=== PATIENT | male | born 1960 | race Caucasian/White ===

== ENCOUNTER 2018-11-16 00:53 | Emergency (ER) | payer OTHER ==
[2018-11-16] MEDS: DEXTROSE 5%-0.45% NACL 500 ML BAG IV (01:41)
[2018-11-16] MEDS: FOLIC ACID 1 MG TAB PO (01:42)
[2018-11-16] MEDS: DIAZEPAM 5 MG/ML SYG IV (01:42)
[2018-11-16] MEDS: THIAMINE 100 MG TAB PO (01:42)
[2018-11-16 01:43] LABS: ADD MAN DIFF? NO
[2018-11-16] MEDS: SOD CHLORIDE 0.9% 1,000 ML IV (01:43)
[2018-11-16 01:47] LABS: BASOPHILS % 0.4 % (0.0-2.0); EOSINOPHILS # 0.1 10^3/ul (0.0-0.5); EOSINOPHILS % 1.6 % (0.0-7.0); HEMATOCRIT 28.6 % (42.0-52.0); HEMOGLOBIN 9.7 g/dl (14.0-18.0); LYMPHOCYTES # 1.6 10^3/ul (0.8-2.9); LYMPHOCYTES % 22.8 % (15.0-51.0); MEAN CORPUSCULAR HEMOGLOBIN 32.7 pg (29.0-33.0); MEAN CORPUSCULAR HGB CONC 33.9 g/dl (32.0-37.0); MEAN CORPUSCULAR VOLUME 96.3 fl (82.0-101.0); MEAN PLATELET VOLUME 8.7 fl (7.4-10.4); MONOCYTE # 0.7 10^3/ul (0.3-0.9); MONOCYTES % 9.7 % (0.0-11.0); NEUTROPHIL # 4.5 10^3/ul (1.6-7.5); NEUTROPHILS % 65.2 % (39.0-77.0); PLATELET COUNT 146 10^3/UL (140-415); RED BLOOD COUNT 2.97 10^6/ul (4.70-6.10)
[2018-11-16 01:47] LABS: WHITE BLOOD COUNT 6.9 10^3/ul (4.8-10.8)
[2018-11-16 02:03] LABS: ANION GAP 11 (5-13); BLOOD UREA NITROGEN 5 mg/dl (7-20); CALCIUM 8.7 mg/dl (8.4-10.2); CARBON DIOXIDE 26 mmol/L (21-31); CHLORIDE 102 mmol/L (97-110); CREATININE 0.75 mg/dl (0.61-1.24); Estimated GFR > 60 mL/min (>60); GLUCOSE 91 mg/dl (70-220); POTASSIUM 3.6 mmol/L (3.5-5.1); SODIUM 139 mmol/L (135-144)
[2018-11-16 02:08] LABS: INR 0.98; PROTIME 13.1 Sec (11.9-14.9)
[2018-11-16 02:09] LABS: PARTIAL THROMBOPLASTIN TIME 26.3 Sec (23.0-35.0)
[2018-11-16] MEDS: LORAZEPAM 1 MG TAB PO (10:04)
== END 2018-11-16 11:16 | disposition home or self-care (01) ==
LOC: E/R 11:16
DX: F10.230 Alcohol dependence with withdrawal, uncomplicated (principal); E86.0 Dehydration; S09.90XA Unspecified injury of head, initial encounter; R51 Headache; R07.9 Chest pain, unspecified; Y08.89XA Assault by other specified means, initial encounter
CPT/HCPCS: 36415; 70450; 70486; 71045; 80048; 85025; 85610; 85730; 96361; 96374; 96375; 99285-25

== ENCOUNTER 2018-11-17 11:43 | Inpatient (IN) | payer OTHER ==
[2018-11-17] MEDS: SOD CHLORIDE 0.9% 1,000 ML IV (12:53)
[2018-11-17 13:04] LABS: ADD MAN DIFF? NO
[2018-11-17 13:28] LABS: ANION GAP 11 (5-13); BLOOD UREA NITROGEN 4 mg/dl (7-20); CALCIUM 8.1 mg/dl (8.4-10.2); CARBON DIOXIDE 21 mmol/L (21-31); CHLORIDE 98 mmol/L (97-110); CREATININE 0.69 mg/dl (0.61-1.24); Estimated GFR > 60 mL/min (>60); GLUCOSE 85 mg/dl (70-220); POTASSIUM 3.9 mmol/L (3.5-5.1); SODIUM 130 mmol/L (135-144)
[2018-11-17 13:33] LABS: INR 1.06; PROTIME 13.9 Sec (11.9-14.9); PT RATIO 1.1
[2018-11-17 13:34] LABS: PARTIAL THROMBOPLASTIN TIME 21.7 Sec (23.0-35.0)
[2018-11-17 13:41] LABS: TROPONIN-I < 0.012 ng/ml (0.000-0.120)
[2018-11-17] MEDS: DIAZEPAM 5 MG/ML SYG IV (13:43)
[2018-11-17 14:31] LABS: WHITE BLOOD COUNT 8.4 10^3/ul (4.8-10.8)
[2018-11-17 14:31] LABS: ABNORMAL IP MESSAGE 1; BASOPHILS % 0.2 % (0.0-2.0); EOSINOPHILS % 0.4 % (0.0-7.0); HEMATOCRIT 26.6 % (42.0-52.0); HEMOGLOBIN 9.2 g/dl (14.0-18.0); LYMPHOCYTES # 0.5 10^3/ul (0.8-2.9); LYMPHOCYTES % 5.9 % (15.0-51.0); MEAN CORPUSCULAR HEMOGLOBIN 33.3 pg (29.0-33.0); MEAN CORPUSCULAR HGB CONC 34.6 g/dl (32.0-37.0); MEAN CORPUSCULAR VOLUME 96.4 fl (82.0-101.0); MEAN PLATELET VOLUME 9.2 fl (7.4-10.4); MONOCYTE # 0.7 10^3/ul (0.3-0.9); MONOCYTES % 8.9 % (0.0-11.0); PLATELET COUNT 112 10^3/UL (140-415); POSITIVE DIFF @See below; RED BLOOD COUNT 2.76 10^6/ul (4.70-6.10); RED CELL DISTRIBUTION WIDTH 13.7 % (11.5-14.5)
[2018-11-18] MEDS ORDERED: ONDANSETRON 4 MG INJ IV ×2 (07:00→12:30)
[2018-11-18] MEDS ORDERED: ACETAMINOPHEN 325 MG TAB PO (07:00)
[2018-11-18] MEDS ORDERED: NACL 0.9% 3 ML SYG IV (12:30)
[2018-11-18] MEDS: SOD CHLORIDE 0.9% 1,000 ML IV ×2 (14:09→20:25)
[2018-11-18] MEDS: CHLORDIAZEPOXIDE 25 MG CAP PO ×2 (14:10→20:14)
[2018-11-18] MEDS: MULTIVITAMINS 10 ML, THIAMINE 100 MG, FOLIC ACID 1 MG in SOD CHLORIDE 0.9% 1,000 ML IVPB (14:10)
[2018-11-18] MEDS: LORAZEPAM 2 MG INJ IV ×2 (14:10→23:45)
[2018-11-18] MEDS: ACETAMINOPHEN 325 MG TAB PO (20:14)
[2018-11-19] MEDS ORDERED: traMADol-APAP 37.5-325 1 TAB PO
[2018-11-19] MEDS: traMADol 50 MG TAB PO ×3 (00:30→21:17)
[2018-11-19] MEDS: SOD CHLORIDE 0.9% 1,000 ML IV ×3 (04:25→20:25)
[2018-11-19 05:40] LABS: ADD MAN DIFF? NO
[2018-11-19 05:46] LABS: WHITE BLOOD COUNT 11.2 10^3/ul (4.8-10.8)
[2018-11-19 05:46] LABS: ABNORMAL IP MESSAGE 1; BASOPHILS % 0.2 % (0.0-2.0); EOSINOPHILS # 0.2 10^3/ul (0.0-0.5); EOSINOPHILS % 1.5 % (0.0-7.0); HEMATOCRIT 30.2 % (42.0-52.0); HEMOGLOBIN 10.1 g/dl (14.0-18.0); LYMPHOCYTES # 1.2 10^3/ul (0.8-2.9); LYMPHOCYTES % 10.5 % (15.0-51.0); MEAN CORPUSCULAR HEMOGLOBIN 32.9 pg (29.0-33.0); MEAN CORPUSCULAR HGB CONC 33.4 g/dl (32.0-37.0); MEAN CORPUSCULAR VOLUME 98.4 fl (82.0-101.0); MEAN PLATELET VOLUME 9.6 fl (7.4-10.4); MONOCYTE # 1.7 10^3/ul (0.3-0.9); MONOCYTES % 14.8 % (0.0-11.0); NEUTROPHIL # 8.1 10^3/ul (1.6-7.5); NEUTROPHILS % 72.2 % (39.0-77.0); PLATELET COUNT 105 10^3/UL (140-415); POSITIVE DIFF @See below; RED BLOOD COUNT 3.07 10^6/ul (4.70-6.10); RED CELL DISTRIBUTION WIDTH 13.7 % (11.5-14.5)
[2018-11-19 06:10] LABS: ALANINE AMINOTRANSFERASE 45 IU/L (13-69); ALBUMIN 3.3 g/dl (3.3-4.9); ALBUMIN/GLOBULIN RATIO 1.26; ALKALINE PHOSPHATASE 62 IU/L (42-121); ANION GAP 8 (5-13); ASPARTATE AMINO TRANSFERASE 42 IU/L (15-46); BILIRUBIN,INDIRECT 0.9 mg/dl (0-1.1); BILIRUBIN,TOTAL 0.9 mg/dl (0.2-1.3); BLOOD UREA NITROGEN 15 mg/dl (7-20); CALCIUM 8.2 mg/dl (8.4-10.2); CARBON DIOXIDE 25 mmol/L (21-31); CHLORIDE 102 mmol/L (97-110); CHOLESTEROL 95 mg/dl (100-200); CREATININE 0.66 mg/dl (0.61-1.24); Estimated GFR > 60 mL/min (>60); GLUCOSE 100 mg/dl (70-220); HDL CHOLESTEROL 46 mg/dl (28-71); LDL CHOLESTEROL,CALCULATED 40 mg/dl; MAGNESIUM 1.8 mg/dl (1.7-2.5); PHOSPHORUS 3.2 mg/dl (2.5-4.9); POTASSIUM 3.8 mmol/L (3.5-5.1); SODIUM 135 mmol/L (135-144); TOTAL PROTEIN 5.9 g/dl (6.1-8.1); TRIGLYCERIDES 47 mg/dl (0-149)
[2018-11-19 06:43] LABS: AMPHETAMINE/METHAMPHETAMINE Negative (NEGATIVE); BARBITURATES Negative (NEGATIVE); CANNABINOIDS Negative (NEGATIVE); COCAINE Negative (NEGATIVE); OPIATES Negative (NEGATIVE)
[2018-11-19 06:45] LABS: BENZODIAZEPINES Positive (NEGATIVE)
[2018-11-19 07:04] LABS: HEMOGLOBIN A1C 4.9 % (0-5.9)
[2018-11-19] MEDS: MULTIVITAMINS 10 ML, THIAMINE 100 MG, FOLIC ACID 1 MG in SOD CHLORIDE 0.9% 1,000 ML IVPB (09:12)
[2018-11-19] MEDS: CHLORDIAZEPOXIDE 25 MG CAP PO ×3 (09:12→20:27)
[2018-11-19] MEDS: LORAZEPAM 2 MG INJ IV ×2 (15:20→20:27)
[2018-11-20] MEDS: LORAZEPAM 2 MG INJ IV ×3 (00:31→21:31)
[2018-11-20] MEDS: ACETAMINOPHEN 325 MG TAB PO ×2 (00:36→21:26)
[2018-11-20] MEDS: CHLORDIAZEPOXIDE 25 MG CAP PO ×4 (01:38→21:26)
[2018-11-20] MEDS: DIPHENHYDRAMINE 50 MG INJ IV (02:30)
[2018-11-20] MEDS: HALOPERIDOL 5 MG INJ IM (02:32)
[2018-11-20] MEDS: SOD CHLORIDE 0.9% 1,000 ML IV ×3 (03:30→21:32)
[2018-11-20] MEDS: MULTIVITAMINS 10 ML, THIAMINE 100 MG, FOLIC ACID 1 MG in SOD CHLORIDE 0.9% 1,000 ML IVPB (09:52)
[2018-11-20] MEDS ORDERED: CHLORDIAZEPOXIDE 25 MG CAP PO (13:00)
[2018-11-20] MEDS: traMADol 50 MG TAB PO (17:16)
== END 2018-11-20 23:10 | disposition left against medical advice (07) | DRG 894 ==
LOC: 6WM 11-18 10:04 → E/R 11:43 → 6WM 11-18 06:37
DX: F10.121 Alcohol abuse with intoxication delirium (principal); E87.1 Hypo-osmolality and hyponatremia; G31.2 Degeneration of nervous system due to alcohol; Y90.7 Blood alcohol level of 200-239 mg/100 ml; D64.9 Anemia, unspecified; F32.9 Major depressive disorder, single episode, unspecified; M54.9 Dorsalgia, unspecified; M47.819 Spondylosis without myelopathy or radiculopathy, site unspecified; Z59.0 Homelessness; Z53.21 Procedure and treatment not carried out due to patient leaving prior to being seen by health care provider
CPT/HCPCS: 36415; 70450; 72125; 80048; 80053; 80061; 80307; 82962; 83036; 83735; 84100; 84484; 85025; 85610; 85730; 92610; 93005; 96374; 97162; 99285-25

== ENCOUNTER 2018-11-21 02:37 | Emergency (ER) | payer OTHER ==
[2018-11-21] MEDS: SOD CHLORIDE 0.9% 1,000 ML IV (03:26)
[2018-11-21] MEDS: ONDANSETRON 4 MG INJ IV (03:26)
[2018-11-21] MEDS: LORAZEPAM 2 MG INJ IM (03:26)
[2018-11-21 03:33] LABS: ADD MAN DIFF? NO
[2018-11-21 04:06] LABS: WHITE BLOOD COUNT 9.9 10^3/ul (4.8-10.8)
[2018-11-21 04:06] LABS: ABNORMAL IP MESSAGE 1; BASOPHILS % 0.3 % (0.0-2.0); EOSINOPHILS # 0.1 10^3/ul (0.0-0.5); EOSINOPHILS % 0.8 % (0.0-7.0); HEMATOCRIT 27.9 % (42.0-52.0); HEMOGLOBIN 9.4 g/dl (14.0-18.0); LYMPHOCYTES # 1.1 10^3/ul (0.8-2.9); LYMPHOCYTES % 10.6 % (15.0-51.0); MEAN CORPUSCULAR HEMOGLOBIN 33.1 pg (29.0-33.0); MEAN CORPUSCULAR HGB CONC 33.7 g/dl (32.0-37.0); MEAN CORPUSCULAR VOLUME 98.2 fl (82.0-101.0); MEAN PLATELET VOLUME 9.4 fl (7.4-10.4); MONOCYTE # 1.6 10^3/ul (0.3-0.9); MONOCYTES % 16.5 % (0.0-11.0); NEUTROPHIL # 7.1 10^3/ul (1.6-7.5); NEUTROPHILS % 71.1 % (39.0-77.0); PLATELET COUNT 197 10^3/UL (140-415); POSITIVE DIFF @See below; RED BLOOD COUNT 2.84 10^6/ul (4.70-6.10); RED CELL DISTRIBUTION WIDTH 13.5 % (11.5-14.5)
[2018-11-21 04:32] LABS: ALANINE AMINOTRANSFERASE 48 IU/L (13-69); ALBUMIN 3.6 g/dl (3.3-4.9); ALBUMIN/GLOBULIN RATIO 1.16; ALKALINE PHOSPHATASE 71 IU/L (42-121); ANION GAP 10 (5-13); ASPARTATE AMINO TRANSFERASE 69 IU/L (15-46); BILIRUBIN,INDIRECT 0.4 mg/dl (0-1.1); BILIRUBIN,TOTAL 0.4 mg/dl (0.2-1.3); BLOOD UREA NITROGEN 13 mg/dl (7-20); CALCIUM 9.3 mg/dl (8.4-10.2); CARBON DIOXIDE 24 mmol/L (21-31); CHLORIDE 101 mmol/L (97-110); CREATININE 0.77 mg/dl (0.61-1.24); Estimated GFR > 60 mL/min (>60); GLUCOSE 81 mg/dl (70-220); LIPASE 138 U/L (23-300); POTASSIUM 3.8 mmol/L (3.5-5.1); SODIUM 135 mmol/L (135-144); TOTAL PROTEIN 6.7 g/dl (6.1-8.1)
[2018-11-21 04:42] LABS: TROPONIN-I < 0.012 ng/ml (0.000-0.120)
[2018-11-21] MEDS: HALOPERIDOL 5 MG INJ IM (04:47)
== END 2018-11-21 07:25 | disposition home or self-care (01) ==
LOC: E/R 02:37
DX: F10.230 Alcohol dependence with withdrawal, uncomplicated (principal); R40.2142 Coma scale, eyes open, spontaneous, at arrival to emergency department; R40.2362 Coma scale, best motor response, obeys commands, at arrival to emergency department; R40.2252 Coma scale, best verbal response, oriented, at arrival to emergency department; R07.9 Chest pain, unspecified; Z87.891 Personal history of nicotine dependence
CPT/HCPCS: 36415; 71045; 72170; 80053; 80307; 83690; 84484; 85025; 96372; 96374; 99284-25

== ENCOUNTER 2018-11-21 10:10 | Emergency (ER) | payer OTHER ==
[2018-11-21 10:43] LABS: ADD MAN DIFF? NO
[2018-11-21 10:44] LABS: ABNORMAL IP MESSAGE 1; BASOPHILS % 0.5 % (0.0-2.0); EOSINOPHILS # 0.1 10^3/ul (0.0-0.5); HEMATOCRIT 27.6 % (42.0-52.0); HEMOGLOBIN 9.4 g/dl (14.0-18.0); LYMPHOCYTES # 0.6 10^3/ul (0.8-2.9); LYMPHOCYTES % 7.1 % (15.0-51.0); MEAN CORPUSCULAR HEMOGLOBIN 33.3 pg (29.0-33.0); MEAN CORPUSCULAR HGB CONC 34.1 g/dl (32.0-37.0); MEAN CORPUSCULAR VOLUME 97.9 fl (82.0-101.0); MEAN PLATELET VOLUME 8.8 fl (7.4-10.4); MONOCYTE # 1.3 10^3/ul (0.3-0.9); MONOCYTES % 15.5 % (0.0-11.0); NEUTROPHIL # 6.2 10^3/ul (1.6-7.5); NEUTROPHILS % 75.4 % (39.0-77.0); PLATELET COUNT 211 10^3/UL (140-415); POSITIVE DIFF @See below; RED BLOOD COUNT 2.82 10^6/ul (4.70-6.10); RED CELL DISTRIBUTION WIDTH 13.6 % (11.5-14.5)
[2018-11-21 10:44] LABS: WHITE BLOOD COUNT 8.3 10^3/ul (4.8-10.8)
[2018-11-21 11:04] LABS: INR 0.93; PROTIME 12.6 Sec (11.9-14.9)
[2018-11-21 11:05] LABS: PARTIAL THROMBOPLASTIN TIME 25.8 Sec (23.0-35.0)
[2018-11-21] MEDS: MAGNESIUM SULFATE 2 GM, MULTIVITAMINS 10 ML, THIAMINE 100 MG, FOLIC ACID 1 MG in SOD CH... IV (11:09)
[2018-11-21 11:11] LABS: ANION GAP 12 (5-13); Estimated GFR > 60 mL/min (>60)
[2018-11-21 11:21] LABS: ALANINE AMINOTRANSFERASE 54 IU/L (13-69); ALBUMIN 3.6 g/dl (3.3-4.9); ALBUMIN/GLOBULIN RATIO 1.28; ALKALINE PHOSPHATASE 67 IU/L (42-121); ASPARTATE AMINO TRANSFERASE 84 IU/L (15-46); BILIRUBIN,INDIRECT 0.6 mg/dl (0-1.1); BILIRUBIN,TOTAL 0.6 mg/dl (0.2-1.3); BLOOD UREA NITROGEN 10 mg/dl (7-20); CARBON DIOXIDE 24 mmol/L (21-31); CHLORIDE 102 mmol/L (97-110); GLUCOSE 82 mg/dl (70-220); POTASSIUM 3.8 mmol/L (3.5-5.1); SODIUM 138 mmol/L (135-144); TOTAL PROTEIN 6.4 g/dl (6.1-8.1)
[2018-11-21 11:26] LABS: ACETAMINOPHEN < 10.0 ug/ml (10.0-30.0); SALICYLATE < 1.0 mg/dl (5.0-30.0)
[2018-11-21] MEDS ORDERED: CHLORDIAZEPOXIDE 25 MG CAP PO (13:30)
== END 2018-11-21 14:19 | disposition home or self-care (01) ==
LOC: E/R 10:10
DX: F10.920 Alcohol use, unspecified with intoxication, uncomplicated (principal)
CPT/HCPCS: 36415; 80053; 80307; 85025; 85610; 85730; 96374; 99284-25

== ENCOUNTER 2018-11-21 20:36 | Emergency (ER) | payer OTHER | END 2018-11-22 05:30 | disposition home or self-care (01) | LOC: E/R 11-22 05:30 | DX: F10.10 Alcohol abuse, uncomplicated (principal); M25.551 Pain in right hip; M25.552 Pain in left hip; G89.29 Other chronic pain; F17.210 Nicotine dependence, cigarettes, uncomplicated | CPT/HCPCS: 72170; 99283-25 ==

== ENCOUNTER 2018-11-24 00:56 | Inpatient (IN) | payer OTHER ==
[2018-11-24] MEDS: SOD CHLORIDE 0.9% 1,000 ML IV ×6 (02:30→22:30)
[2018-11-24] MEDS ORDERED: NACL 0.9% 3 ML SYG IV (02:30)
[2018-11-24] MEDS ORDERED: ALBUTEROL/IPRATROPIUM (NEB) 3 ML AMP HHN (02:30)
[2018-11-24] MEDS ORDERED: ONDANSETRON 4 MG INJ IV (02:30)
[2018-11-24] MEDS: PANTOPRAZOLE 40 MG INJ IV (05:34)
[2018-11-24 06:04] LABS: ADD MAN DIFF? NO
[2018-11-24 06:14] LABS: WHITE BLOOD COUNT 8.2 10^3/ul (4.8-10.8)
[2018-11-24 06:14] LABS: ABNORMAL IP MESSAGE 1; BASOPHILS % 0.5 % (0.0-2.0); EOSINOPHILS # 0.1 10^3/ul (0.0-0.5); EOSINOPHILS % 1.3 % (0.0-7.0); HEMATOCRIT 26.5 % (42.0-52.0); HEMOGLOBIN 8.6 g/dl (14.0-18.0); LYMPHOCYTES # 1.2 10^3/ul (0.8-2.9); LYMPHOCYTES % 14.5 % (15.0-51.0); MEAN CORPUSCULAR HEMOGLOBIN 32.7 pg (29.0-33.0); MEAN CORPUSCULAR HGB CONC 32.5 g/dl (32.0-37.0); MEAN CORPUSCULAR VOLUME 100.8 fl (82.0-101.0); MEAN PLATELET VOLUME 8.8 fl (7.4-10.4); MONOCYTE # 1.6 10^3/ul (0.3-0.9); MONOCYTES % 19.6 % (0.0-11.0); NEUTROPHIL # 5.2 10^3/ul (1.6-7.5); NEUTROPHILS % 63.2 % (39.0-77.0); PLATELET COUNT 343 10^3/UL (140-415); POSITIVE DIFF @See below; RED BLOOD COUNT 2.63 10^6/ul (4.70-6.10); RED CELL DISTRIBUTION WIDTH 14.3 % (11.5-14.5)
[2018-11-24 06:44] LABS: ALANINE AMINOTRANSFERASE 67 IU/L (13-69); ALBUMIN 2.6 g/dl (3.3-4.9); ALBUMIN/GLOBULIN RATIO 0.96; ALKALINE PHOSPHATASE 49 IU/L (42-121); ANION GAP 5 (5-13); ASPARTATE AMINO TRANSFERASE 92 IU/L (15-46); BILIRUBIN,INDIRECT 0.5 mg/dl (0-1.1); BILIRUBIN,TOTAL 0.5 mg/dl (0.2-1.3); BLOOD UREA NITROGEN 9 mg/dl (7-20); CALCIUM 7.3 mg/dl (8.4-10.2); CARBON DIOXIDE 23 mmol/L (21-31); CHLORIDE 114 mmol/L (97-110); CREATININE 0.72 mg/dl (0.61-1.24); Estimated GFR > 60 mL/min (>60); GLUCOSE 107 mg/dl (70-220); MAGNESIUM 2.3 mg/dl (1.7-2.5); POTASSIUM 3.7 mmol/L (3.5-5.1); SODIUM 142 mmol/L (135-144); TOTAL PROTEIN 5.3 g/dl (6.1-8.1)
[2018-11-24] MEDS: CHLORDIAZEPOXIDE 25 MG CAP PO ×2 (09:20→16:49)
[2018-11-24] MEDS: MULTIVITAMINS 10 ML, THIAMINE 100 MG, FOLIC ACID 1 MG in SOD CHLORIDE 0.9% 1,000 ML IVPB (09:20)
[2018-11-24] MEDS: ACETAMINOPHEN 325 MG TAB PO ×2 (14:04→21:41)
[2018-11-24] MEDS: LORAZEPAM 2 MG INJ IV (23:35)
[2018-11-25] MEDS: CHLORDIAZEPOXIDE 25 MG CAP PO ×3 (01:03→16:56)
[2018-11-25 05:39] LABS: ADD MAN DIFF? NO
[2018-11-25 05:44] LABS: BASOPHILS % 0.6 % (0.0-2.0); EOSINOPHILS # 0.3 10^3/ul (0.0-0.5); EOSINOPHILS % 3.7 % (0.0-7.0); HEMATOCRIT 26.9 % (42.0-52.0); HEMOGLOBIN 8.6 g/dl (14.0-18.0); LYMPHOCYTES # 1.4 10^3/ul (0.8-2.9); LYMPHOCYTES % 19.9 % (15.0-51.0); MEAN CORPUSCULAR HEMOGLOBIN 32.5 pg (29.0-33.0); MEAN CORPUSCULAR VOLUME 101.5 fl (82.0-101.0); MONOCYTE # 1.1 10^3/ul (0.3-0.9); NEUTROPHIL # 4.3 10^3/ul (1.6-7.5); PLATELET COUNT 325 10^3/UL (140-415); RED BLOOD COUNT 2.65 10^6/ul (4.70-6.10); RED CELL DISTRIBUTION WIDTH 13.8 % (11.5-14.5)
[2018-11-25 05:44] LABS: WHITE BLOOD COUNT 7.1 10^3/ul (4.8-10.8)
[2018-11-25] MEDS: SOD CHLORIDE 0.9% 1,000 ML IV ×5 (05:57→18:02)
[2018-11-25] MEDS: PANTOPRAZOLE 40 MG INJ IV (06:04)
[2018-11-25 06:11] LABS: ANION GAP 3 (5-13); BLOOD UREA NITROGEN 9 mg/dl (7-20); CARBON DIOXIDE 24 mmol/L (21-31); CHLORIDE 110 mmol/L (97-110); CREATININE 0.78 mg/dl (0.61-1.24); Estimated GFR > 60 mL/min (>60); GLUCOSE 95 mg/dl (70-220); MAGNESIUM 1.7 mg/dl (1.7-2.5); PHOSPHORUS 2.9 mg/dl (2.5-4.9); POTASSIUM 4.1 mmol/L (3.5-5.1); SODIUM 137 mmol/L (135-144)
[2018-11-25] MEDS: MULTIVITAMINS 10 ML, THIAMINE 100 MG, FOLIC ACID 1 MG in SOD CHLORIDE 0.9% 1,000 ML IVPB (09:16)
[2018-11-25] MEDS: LORAZEPAM 2 MG INJ IV (18:02)
[2018-11-25] MEDS: ACETAMINOPHEN 325 MG TAB PO (19:54)
[2018-11-26] MEDS: CHLORDIAZEPOXIDE 25 MG CAP PO ×2 (01:08→08:38)
[2018-11-26] MEDS: SOD CHLORIDE 0.9% 1,000 ML IV ×3 (04:13→07:27)
[2018-11-26] MEDS: PANTOPRAZOLE 40 MG INJ IV (06:54)
[2018-11-26] MEDS: MULTIVITAMINS 10 ML, THIAMINE 100 MG, FOLIC ACID 1 MG in SOD CHLORIDE 0.9% 1,000 ML IVPB (08:38)
[2018-11-26] MEDS: LORAZEPAM 2 MG INJ IV ×2 (08:38→23:47)
[2018-11-26] MEDS: ACETAMINOPHEN 325 MG TAB PO (16:01)
[2018-11-27] MEDS: ACETAMINOPHEN 325 MG TAB PO (00:29)
[2018-11-27] MEDS: PANTOPRAZOLE 40 MG INJ IV (06:26)
[2018-11-27] MEDS: LORAZEPAM 2 MG INJ IV (21:34)
[2018-11-28] MEDS: ACETAMINOPHEN 325 MG TAB PO (02:03)
[2018-11-28] MEDS ORDERED: ONDANSETRON 4 MG TAB PO (02:30)
[2018-11-28] MEDS: PANTOPRAZOLE (EC) 40 MG TAB PO (05:56)
[2018-11-28] MEDS: LORAZEPAM 1 MG TAB PO ×2 (12:59→22:54)
[2018-11-29] MEDS: LORAZEPAM 1 MG TAB PO (00:58)
[2018-11-29] MEDS: ACETAMINOPHEN 325 MG TAB PO ×3 (01:33→19:39)
[2018-11-30] MEDS: ACETAMINOPHEN 325 MG TAB PO (20:21)
[2018-12-01] MEDS: ARTIFICIAL TEARS 15 ML OPH RIGHT EYE (13:58)
== END 2018-12-01 15:20 | disposition home or self-care (01) | DRG 897 ==
LOC: 6WM 00:56 → MS3 11-27 17:47
DX: F10.239 Alcohol dependence with withdrawal, unspecified (principal); F10.229 Alcohol dependence with intoxication, unspecified; F32.9 Major depressive disorder, single episode, unspecified; F41.9 Anxiety disorder, unspecified; F17.200 Nicotine dependence, unspecified, uncomplicated; D53.1 Other megaloblastic anemias, not elsewhere classified; M54.9 Dorsalgia, unspecified; G89.29 Other chronic pain; R29.6 Repeated falls; Y90.3 Blood alcohol level of 60-79 mg/100 ml; Z59.0 Homelessness
CPT/HCPCS: 80048; 80053; 83735; 84100; 85025; 97110; 97116; 97162; 97530